=== PATIENT | female | born 1970 | race Two or more races ===

== ENCOUNTER 2022-09-02 22:38 | Emergency (ER) | payer OTHER ==
[~2022-09-02] VITALS: Ht 162.6 cm; Wt 47.6 kg
[2022-09-03] MEDS ORDERED: LEVSIN/SL0.125 MG SL (03:52)
[2022-09-03] MEDS ORDERED: INTESTINEX680 M1 PO (03:52)
[2022-09-03] MEDS ORDERED: ONDANSETRON ODT4 MG PO (03:52)
[2022-09-03] MEDS ORDERED: PEPCID40 MG PO (03:52)
== END 2022-09-03 04:12 ==
LOC: ER 22:38
DX: K52.9 Noninfective gastroenteritis and colitis, unspecified (principal); Z88.8 Allergy status to other drugs, medicaments and biological substances